=== PATIENT | male | born 1980 | race Caucasian/White ===

== ENCOUNTER 2018-09-21 13:45 | Inpatient (IN) | payer SELFPAY ==
--- NOTE | 2018-09-21 13:56 | Emergency Department Report ---
Blank Doc - Documentation Documentation: 38 y o male with hx of ETOH abuse presents with alcohol withdrawal/intox labs ordered MAin eval
--- NOTE | 2018-09-21 14:40 | Cat Scan Report ---
EXAM: CT HEAD/BRAIN WO CON HISTORY: Alcohol Intoxication TECHNIQUE: Spiral axial CT images are obtained through the brain without the administration of intra venous contrast. CT DOSE LENGTH PRODUCT: 805.4 mGycm COMPARISON: None available. FINDINGS: The centrum semiovale, basal ganglia, cerebellum, and brainstem are grossly unremarkable for a noncon trast CT scan. There is no acute intracranial hemorrhage, discernible acute infarction, mass lesion, midline shift, or hydrocephalus seen. No extra-axial mass or abnormal fluid collection is seen. The calvarium is intact. The partially imaged paranasal sinuses, middle ear cavities, and mastoid ai r cells are clear. IMPRESSION: 1. No intracranial hemorrhage, discernible acute infarction, mass lesions, midline shift, mass effe ct or hydrocephalus seen. 2. No gross acute intracranial abnormality seen. This document is electronically signed by Anai Stewart MD., September 21 2018 02:38:43 PM ET
[2018-09-21 14:44] LABS: Basophils % (Auto) 0.4 % (0.0-1.8); Eosinophils % (Auto) 0.1 % (0.0-4.3); Hematocrit 38.1 % (35.5-45.6); Hemoglobin 13.5 gm/dl (11.8-15.2); Lymphocytes % (Auto) 12.7 % (13.4-35.0); Mean Corpuscular HGB Conc 35 % (32-34); Mean Corpuscular Volume 93 fl (84-94); Monocytes # (Auto) 0.7 K/mm3 (0.0-0.8); Monocytes % (Auto) 8.6 % (0.0-7.3); Platelet Count 134 K/mm3 (140-440); Red Cell Distribution Width 14.1 % (13.2-15.2)
[2018-09-21] MEDS ORDERED: ATIVAN IV ONE (14:53)
[2018-09-21] MEDS ORDERED: VITAMIN B-1 100 MG, FOLVITE 1 MG, INFUVITE 10 ML in NACL 0.9% 1000 ML 1,000 ML IV ONE (14:53)
[2018-09-21 14:54] LABS: INR 1.08 (0.87-1.13)
[2018-09-21 14:55] LABS: Partial Thromboplastin Time 33.2 Sec. (24.2-36.6)
--- NOTE | 2018-09-21 15:00 | Emergency Department Report ---
ED Alcohol HPI - General Chief Complaint: Alcohol Stated Complaint: FEELS REALLY BAD Time Seen by Provider: 09/21/18 13:52 Source: patient Mode of arrival: Ambulatory Limitations: No Limitations - History of Present Illness Initial Comments: Patient is a 38 years old male with no significant past medical history except for chronic alcoholism. Patient presented to the ER stating that he is feeling bad. Patient is shaking with significant tremor. Patient also stated that he's been having some visual hallucination although patient does not have any history of psych problems before. Patient stated that he drink a 12 packs every day and he tried to quit yesterday. Patient is in obvious DT's. CIWIA protocol initiated. Patient received 2 mg of Ativan and started on banana bag. Patient was discharged from the hospital 2 weeks ago for the same presentation. MD Complaint: alcohol withdrawal -: days(s) (1) Chronic Alcohol Use: Yes Recent Trauma: No Treatments Prior to Arrival: none - Related Data Previous Rx's Medication Instructions Recorded Last Taken Type Folic Acid [Folvite] 1 mg PO QDAY #30 tablet 09/01/18 Unknown Rx Multivitamin Tab [Multiple Vitamin 1 each PO QDAY #30 tablet 09/01/18 Unknown Rx TAB (Theragran)] Thiamine [Vitamin B-1] 100 mg PO QDAY #30 tablet 09/01/18 Unknown Rx Allergies Allergy/AdvReac Type Severity Reaction Status Date / Time No Known Allergies Allergy Verified 08/30/18 14:51 ED Review of Systems ROS: Stated complaint: FEELS REALLY BAD Other details as noted in HPI Comment: All other systems reviewed and negative Constitutional: denies: chills, fever Respiratory: denies: cough, orthopnea, shortness of breath, SOB with exertion, SOB at rest, wheezing Cardiovascular: denies: chest pain, palpitations Gastrointestinal: denies: abdominal pain, nausea, vomiting, diarrhea, constipation, hematemesis, melena, hematochezia Genitourinary: denies: urgency, dysuria Neurological: headache. denies: weakness, numbness, paresthesias, confusion Psychiatric: anxiety, visual hallucinations. denies: depression, auditory hallucinations, homicidal thoughts, suicidal thoughts ED Past Medical Hx - Past Medical History Previous Medical History?: No Hx Congestive Heart Failure: No Hx Diabetes: No Hx Asthma: No Hx COPD: No Hx HIV: No - Surgical History Past Surgical History?: No - Social History Smoking Status: Current Every Day Smoker Substance Use Type: Alcohol - Medications Home Medications: Home Medications Medication Instructions Recorded Confirmed Last Taken Type Folic Acid [Folvite] 1 mg PO QDAY #30 tablet 09/01/18 Unknown Rx Multivitamin Tab [Multiple Vitamin 1 each PO QDAY #30 tablet 09/01/18 Unknown Rx TAB (Theragran)] Thiamine [Vitamin B-1] 100 mg PO QDAY #30 tablet 09/01/18 Unknown Rx ED Physical Exam - General Limitations: No Limitations General appearance: alert, anxious, other (obvious tremor) - Head Head exam: Present: atraumatic, normocephalic, normal inspection - Eye Eye exam: Present: normal appearance, PERRL - ENT ENT exam: Present: normal exam, normal orophraynx, mucous membranes moist - Respiratory Respiratory exam: Present: normal lung sounds bilaterally - Cardiovascular Cardiovascular Exam: Present: regular rate, normal rhythm, normal heart sounds - GI/Abdominal GI/Abdominal exam: Present: soft, normal bowel sounds. Absent: distended, tenderness, guarding, rebound, rigid, organomegaly, mass, bruit, pulsatile mass, hernia - Extremities Exam Extremities exam: Present: normal inspection, full ROM, normal capillary refill. Absent: pedal edema, calf tenderness - Back Exam Back exam: Present: normal inspection, full ROM. Absent: CVA tenderness (R), CVA tenderness (L), muscle spasm, paraspinal tenderness, vertebral tenderness - Neurological Exam Neurological exam: Present: alert, oriented X3, CN II-XII intact, normal gait, reflexes normal - Skin Skin exam: Present: warm, intact, normal color ED Course Vital Signs 09/21/18 09/21/18 09/21/18 13:54 14:09 15:07 Temperature 98.0 F 97.7 F Pulse Rate 83 79 Respiratory 18 22 20 Rate Blood Pressure 128/80 Blood Pressure 128/80 [Right] O2 Sat by Pulse 98 97 Oximetry ED Medical Decision Making - Lab Data Result diagrams: 09/21/18 13:58 09/21/18 13:58 - Medical Decision Making Patient is a 38 years old male with no significant past medical history except for chronic alcoholism. Patient presented to the ER stating that he is feeling bad. Patient is shaking with significant tremor. Patient also stated that he's been having some visual hallucination although patient does not have any history of psych problems before. Patient stated that he drink a 12 packs every day and he tried to quit yesterday. Patient is in obvious DT's. CIWIA protocol initiated. Patient received 2 mg of Ativan and started on banana bag. Patient CIWIA score is 14. I discussed the patient is Dr. Singh, he agreed to admit the patient to medical service. Critical Care Time: Yes Critical care time in (mins) excluding proc time.: 30 Critical care attestation.: If time is entered above; I have spent that time in minutes in the direct care of this critically ill patient, excluding procedure time. ED Disposition Clinical Impression: Delirium tremens, Alcohol withdrawal Disposition: 09 OP ADMIT IP TO THIS HOSP Is pt being admited?: No Condition: Stable Instructions: Acute Delirium (ED), Alcohol Withdrawal (ED)
[2018-09-21] MEDS ORDERED: NACL 0.9% 1000 ML 1,000 ML ONE (15:05)
[2018-09-21 15:11] LABS: Alanine Aminotransferase 60 units/L (7-56); Albumin 4.5 g/dL (3.9-5); BUN/Creatinine Ratio 8; Blood Urea Nitrogen 5 mg/dL (9-20); Calcium 9.5 mg/dL (8.4-10.2); Hemolysis Index 4
[2018-09-21] MEDS ORDERED: NACL 0.9% 1000 ML 1,000 ML IV ONE (15:12)
[2018-09-21] MEDS ORDERED: IBUPROFEN PO PRN (17:04)
[2018-09-21] MEDS ORDERED: SODIUM CHLORIDE FLUSH SYRINGE 10 ML IV PRN ×3 (17:04→19:04)
[2018-09-21] MEDS ORDERED: ZOFRAN IV PRN ×3 (17:04→19:04)
[2018-09-21] MEDS ORDERED: MORPHINE IV PRN (17:04)
[2018-09-21] MEDS ORDERED: TYLENOL PO PRN ×2 (17:04→17:39)
--- NOTE | 2018-09-21 18:11 | History and Physical Report ---
History of Present Illness Date of examination: 09/21/18 Date of admission: 09/21/2018 Chief complaint: Complains of weakness and tremors for 1 day History of present illness: 38-year-old male with history of alcoholism comes in for feeling weak, generalized malaise and tremors. Patient presented to the registration window visibly tremulous and having trouble writing. Patient is diaphoretic and complains of nausea and a headache. Patient tried to quit drinking since yesterday and became tremulous. Patient is also having hallucinations. No suicidal or homicidal ideas. No fever or chills. Patient drinks about 12 pack beer every day. No chest pain or shortness of breath. Patient is confused and also short of breath. Patient was recently admitted and discharged Last discharge summary on 09/01/2018 Hospital course: 38 YO Male with Nicotine Dependence, ETOH dependence presents to ED for evaluation. Pt is confused, tremulous and unable to provide detailed history. Pt history taken from family members who are at bedside during exam and interview. As per family, the patient consumes approximately 1-2 6 packs of beer daily with the last drink as of yesterday although family reports close to 30 drinks daily. Pt transported to [facility] via private vehicle. Pt seen and evaluated in ED and found to have ETOH Withdrawl complicated by Delirium Tremens. Pt admitted to medical floor and initiated on CIWA protocol. No prior admission for review. No medication listed for reconciliation at time of admission. Pt is confused but has a positive gag reflex and is able to protect his airway. He is unable to afford etoh on the day of presentation. patient was treated with CIWA protocol and mental status improved. counselling 15mins provided on need to quit tobacco and etoh, pt verbalized understanding. Potassium was supplemented, last ativan given was around 6:30pm yesterday. 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 Past Medical History Alcoholism Surgical History Past Surgical History?: No Social History Smoking Status: Current Every Day Smoker Substance Use Type: Alcohol on regular basis--patient not able to quantify Family history Htn Medications Home Medications: Home Medications Medication Instructions Recorded Confirmed Last Taken Type Folic Acid [Folvite] 1 mg PO QDAY #30 tablet 09/01/18 Unknown Rx Multivitamin Tab [Multiple Vitamin 1 each PO QDAY #30 tablet 09/01/18 Unknown Rx TAB (Theragran)] Thiamine [Vitamin B-1] 100 mg PO QDAY #30 tablet 09/01/18 Unknown Rx Review of systems ROS: Stated complaint: FEELS REALLY BAD Other details as noted in HPI Comment: All other systems reviewed and negative Constitutional: denies: chills, fever Respiratory: denies: cough, orthopnea, shortness of breath, SOB with exertion, SOB at rest, wheezing Cardiovascular: denies: chest pain, palpitations Gastrointestinal: denies: abdominal pain, nausea, vomiting, diarrhea, constipation, hematemesis, melena, hematochezia Genitourinary: denies: urgency, dysuria Neurological: headache. denies: weakness, numbness, paresthesias, confusion Psychiatric: anxiety, visual hallucinations. denies: depression, auditory hallucinations, homicidal thoughts, suicidal thoughts Review of systems otherwise negative Medications and Allergies Allergies Allergy/AdvReac Type Severity Reaction Status Date / Time No Known Allergies Allergy Verified 08/30/18 14:51 Home Medications Medication Instructions Recorded Confirmed Last Taken Type Folic Acid [Folvite] 1 mg PO QDAY #30 tablet 09/01/18 Unknown Rx Multivitamin Tab [Multiple Vitamin 1 each PO QDAY #30 tablet 09/01/18 Unknown Rx TAB (Theragran)] Thiamine [Vitamin B-1] 100 mg PO QDAY #30 tablet 09/01/18 Unknown Rx Active Meds: Active Medications Acetaminophen (Tylenol) 650 mg PO Q4H PRN PRN Reason: Pain MILD(1-3)/Fever >100.5/SHERMAN Acetaminophen (Tylenol) 650 mg PO Q4H PRN PRN Reason: Pain MILD(1-3)/Fever >100.5/SHERMAN Folic Acid (Folvite) 1 mg PO QDAY [facility] Thiamine HCl 100 mg/ Folic Acid 1 mg/ Multivitamins/Minerals 10 ml/ Sodium Chloride 1,011.2 mls @ 250 mls/hr IV ONCE ONE Stop: 09/21/18 18:55 Last Admin: 09/21/18 15:30 Dose: 250 mls/hr Documented by: Dextrose/Sodium Chloride (D5ns) 1,000 mls @ 100 mls/hr IV DIRECT [facility] Ibuprofen (Ibuprofen) 600 mg PO Q6H PRN PRN Reason: Pain, Mild (1-3) Morphine Sulfate (Morphine) 2 mg IV Q4H PRN PRN Reason: Pain, Moderate (4-6) Multivitamins (Theragran Tab) 1 each PO QDAY [facility] Ondansetron HCl (Zofran) 4 mg IV Q8H PRN PRN Reason: Nausea And Vomiting Ondansetron HCl (Zofran) 4 mg IV Q8H PRN PRN Reason: Nausea And Vomiting Sodium Chloride (Sodium Chloride Flush Syringe 10 Ml) 10 ml IV BID [facility] Sodium Chloride (Sodium Chloride Flush Syringe 10 Ml) 10 ml IV PRN PRN PRN Reason: LINE FLUSH Sodium Chloride (Sodium Chloride Flush Syringe 10 Ml) 10 ml IV BID [facility] Sodium Chloride (Sodium Chloride Flush Syringe 10 Ml) 10 ml IV PRN PRN PRN Reason: LINE FLUSH Thiamine HCl (Vitamin B-1) 100 mg PO QDAY [facility] Exam - Constitutional Vitals: Temp Pulse Resp BP Pulse Ox 97.7 F 63 13 128/76 100 09/21/18 14:09 09/21/18 17:00 09/21/18 17:00 09/21/18 17:00 09/21/18 17:00 General appearance: Present: mild distress, well-nourished - EENT Eyes: Present: PERRL ENT: hearing intact, clear oral mucosa - Neck Neck: Present: supple, normal ROM - Respiratory Respiratory effort: normal Respiratory: bilateral: CTA - Cardiovascular Heart rate: 78 Rhythm: regular Heart Sounds: Present: S1 & S2. Absent: rub, click - Extremities Extremities: pulses symmetrical, No edema Peripheral Pulses: within normal limits - Abdominal General gastrointestinal: Present: soft, non-tender, non-distended, normal bowel sounds Male genitourinary: Present: normal - Integumentary Integumentary: Present: clear, warm, dry - Musculoskeletal Musculoskeletal: gait normal, strength equal bilaterally - Psychiatric Psychiatric: appropriate mood/affect, intact judgment & insight - Neurologic Neurologic: CNII-XII intact, moves all extremities Results - Labs CBC & Chem 7: 09/21/18 13:58 09/21/18 13:58 Labs: Laboratory Last Values WBC 7.8 K/mm3 (4.5-11.0) 09/21/18 13:58 RBC 4.10 M/mm3 (3.65-5.03) 09/21/18 13:58 Hgb 13.5 gm/dl (11.8-15.2) 09/21/18 13:58 Hct 38.1 % (35.5-45.6) 09/21/18 13:58 MCV 93 fl (84-94) 09/21/18 13:58 MCH 33 pg (28-32) H 09/21/18 13:58 MCHC 35 % (32-34) H 09/21/18 13:58 RDW 14.1 % (13.2-15.2) 09/21/18 13:58 Plt Count 134 K/mm3 (140-440) L 09/21/18 13:58 Lymph % (Auto) 12.7 % (13.4-35.0) L 09/21/18 13:58 [place] % (Auto) 8.6 % (0.0-7.3) H 09/21/18 13:58 Eos % (Auto) 0.1 % (0.0-4.3) 09/21/18 13:58 Baso % (Auto) 0.4 % (0.0-1.8) 09/21/18 13:58 Lymph # 1.0 K/mm3 (1.2-5.4) L 09/21/18 13:58 [place] # 0.7 K/mm3 (0.0-0.8) 09/21/18 13:58 Eos # 0.0 K/mm3 (0.0-0.4) 09/21/18 13:58 Baso # 0.0 K/mm3 (0.0-0.1) 09/21/18 13:58 Seg Neutrophils % 78.2 % (40.0-70.0) H 09/21/18 13:58 Seg Neutrophils # 6.1 K/mm3 (1.8-7.7) 09/21/18 13:58 PT 14.7 Sec. (12.2-14.9) 09/21/18 13:58 INR 1.08 (0.87-1.13) 09/21/18 13:58 APTT 33.2 Sec. (24.2-36.6) 09/21/18 13:58 Sodium 135 mmol/L (137-145) L 09/21/18 13:58 Potassium 4.1 mmol/L (3.6-5.0) 09/21/18 13:58 Chloride 95.1 mmol/L (98-107) L 09/21/18 13:58 Carbon Dioxide 22 mmol/L (22-30) 09/21/18 13:58 22 mmol/L 09/21/18 13:58 BUN 5 mg/dL (9-20) L 09/21/18 13:58 0.6 mg/dL (0.8-1.5) L 09/21/18 13:58 Estimated GFR > 60 ml/min 09/21/18 13:58 8 % 09/21/18 13:58 Glucose 100 mg/dL (75-100) 09/21/18 13:58 Calcium 9.5 mg/dL (8.4-10.2) 09/21/18 13:58 Magnesium 1.80 mg/dL (1.7-2.3) 09/21/18 15:16 1.50 mg/dL (0.1-1.2) H 09/21/18 13:58 AST 86 units/L (5-40) H 09/21/18 13:58 ALT 60 units/L (7-56) H 09/21/18 13:58 197 units/L (35-129) H 09/21/18 13:58 9.5 g/dL (6.3-8.2) H 09/21/18 13:58 4.5 g/dL (3.9-5) 09/21/18 13:58 0.9 % 09/21/18 13:58 37 units/L (13-60) 09/21/18 13:58 Plasma/Serum Alcohol < 0.01 % (0-0.07) 09/21/18 13:58 Assessment and Plan Advance Directives: Yes (full code) VTE prophylaxis?: Chemical Plan of care discussed with patient/family: Yes - Patient Problems (1) Delirium tremens Current Visit: Yes Status: Acute Plan to address problem: Patient initiated on IV fluids and CIWA protocol (2) Alcohol withdrawal Current Visit: Yes Status: Acute Qualifiers: Complication of substance-induced condition: with delirium Qualified Code(s): F10.231 - Alcohol dependence with withdrawal delirium Plan to address problem: CIWA protocol initiated Patient counseled This is the second admission in the last 2 months (3) Nicotine dependence Current Visit: No Status: Chronic Qualifiers: Nicotine product type: cigarettes Substance use status: in withdrawal Qualified Code(s): F17.213 - Nicotine dependence, cigarettes, with withdrawal Plan to address problem: NicoDerm patch initiated. Patient counseled about stopping smoking (4) Transaminitis Current Visit: Yes Status: Acute Plan to address problem: Secondary to alcohol AST and ALT trending down 95-86 AST 67-60 ALT 208-197 ALK Phos (5) DVT prophylaxis Current Visit: No Status: Acute Plan to address problem: Lovenox 40 mg subcutaneous daily and GI prophylaxis
[2018-09-21] MEDS: VITAMIN B-1 PO SCH (21:32)
[2018-09-21] MEDS: FOLVITE PO SCH (21:32)
[2018-09-21] MEDS: THERAGRAN Tab PO SCH (21:32)
[2018-09-21] MEDS: PEPCID IV SCH (21:33)
[2018-09-21] MEDS: LOVENOX SUB-Q SCH (21:34)
[2018-09-21] MEDS: SODIUM CHLORIDE FLUSH SYRINGE 10 ML IV SCH ×2 (21:34→21:43)
[2018-09-21] MEDS ORDERED: SODIUM CHLORIDE FLUSH SYRINGE 10 ML IV SCH (22:00)
[2018-09-21] MEDS ORDERED: ATIVAN IV PRN (22:52)
[2018-09-21] MEDS: TYLENOL PO PRN (22:59)
[2018-09-22] MEDS: ATIVAN IV PRN ×3 (03:43→22:46)
[2018-09-22 04:02] LABS: Bilirubin,Urine NEG (Negative); Blood,Urine NEG (Negative); Protein,Urine <15 mg/dL mg/dL (Negative); WBC,Urine < 1.0 /HPF (0.0-6.0)
[2018-09-22 04:08] LABS: Color,Urine Dark Yellow (Yellow)
[2018-09-22 04:11] LABS: Amphetamine Screen,Urine PRESUMPTIVE NEGATIVE; Benzodiazepines Screen,Urine PRESUMPTIVE NEGATIVE; Cannabinoid Screen,Urine PRESUMPTIVE NEGATIVE; Cocaine Screen,Urine PRESUMPTIVE NEGATIVE; Methadone Screen,Urine PRESUMPTIVE NEGATIVE; Opiate Screen,Urine PRESUMPTIVE NEGATIVE
[2018-09-22 06:44] LABS: Basophils % (Auto) 0.5 % (0.0-1.8); Eosinophils # (Auto) 0.1 K/mm3 (0.0-0.4); Eosinophils % (Auto) 1.1 % (0.0-4.3); Hematocrit 36.3 % (35.5-45.6); Hemoglobin 12.7 gm/dl (11.8-15.2); Lymphocytes % (Auto) 31.7 % (13.4-35.0); Mean Corpuscular HGB Conc 35 % (32-34); Mean Corpuscular Volume 94 fl (84-94); Monocytes # (Auto) 0.8 K/mm3 (0.0-0.8); Monocytes % (Auto) 12.8 % (0.0-7.3); Red Blood Count 3.85 M/mm3 (3.65-5.03); Red Cell Distribution Width 14.1 % (13.2-15.2)
[2018-09-22 06:49] LABS: Platelet Count 111 K/mm3 (140-440)
[2018-09-22] MEDS: D5NS 1,000 ML IV SCH ×2 (06:49→21:56)
[2018-09-22 07:53] LABS: Alanine Aminotransferase 49 units/L (7-56); Albumin 3.9 g/dL (3.9-5); BUN/Creatinine Ratio 16; Blood Urea Nitrogen 8 mg/dL (9-20); Calcium 9.2 mg/dL (8.4-10.2); Hemolysis Index 12
[2018-09-22] MEDS: SODIUM CHLORIDE FLUSH SYRINGE 10 ML IV SCH ×4 (09:23→22:12)
[2018-09-22] MEDS: PEPCID IV SCH ×2 (09:23→21:52)
[2018-09-22] MEDS: FOLVITE PO SCH (09:24)
[2018-09-22] MEDS: VITAMIN B-1 PO SCH (09:24)
[2018-09-22] MEDS: THERAGRAN Tab PO SCH (09:24)
--- NOTE | 2018-09-22 13:25 | Progress Note ---
Assessment and Plan Assessment and plan: Alcohol withdrawal syndrome Cont [facility] protocol Ativan prn as per [facility] Transaminitis likely due to alcohol Monitor LFT Nicotine use Full code status Hopefully dc home in few days History Interval history: Generalized weakness Tremors improving Hospitalist Physical - Physical exam Narrative exam: Gen: Not in acute distress, lying in bed, HEENT: Normocephalic, atraumatic Neck: supple, no JVD Heart: S1 and S2 reg, no murmurs, rubs or gallop Lungs: Clear, no crackles, no wheeze Abd: soft, non tender, non distended, normal BS Ext: No edema, no clubbing, no cyanosis, Neuro: Awake,alert, oriented x 3, moves all ext, tremors both hands Psych:Normal mood - Constitutional Vitals: Temp Pulse Resp BP Pulse Ox 98.2 F 55 L 20 132/78 99 09/22/18 05:45 09/22/18 05:45 09/22/18 05:45 09/22/18 05:45 09/22/18 07:27 Results - Labs CBC & Chem 7: 09/22/18 06:06 09/22/18 06:06 Labs: Laboratory Last Values WBC 6.3 K/mm3 (4.5-11.0) 09/22/18 06:06 RBC 3.85 M/mm3 (3.65-5.03) 09/22/18 06:06 Hgb 12.7 gm/dl (11.8-15.2) 09/22/18 06:06 Hct 36.3 % (35.5-45.6) 09/22/18 06:06 MCV 94 fl (84-94) 09/22/18 06:06 MCH 33 pg (28-32) H 09/22/18 06:06 MCHC 35 % (32-34) H 09/22/18 06:06 RDW 14.1 % (13.2-15.2) 09/22/18 06:06 Plt Count 111 K/mm3 (140-440) L 09/22/18 06:06 Lymph % (Auto) 31.7 % (13.4-35.0) 09/22/18 06:06 [place] % (Auto) 12.8 % (0.0-7.3) H 09/22/18 06:06 Eos % (Auto) 1.1 % (0.0-4.3) 09/22/18 06:06 Baso % (Auto) 0.5 % (0.0-1.8) 09/22/18 06:06 Lymph # 2.0 K/mm3 (1.2-5.4) 09/22/18 06:06 [place] # 0.8 K/mm3 (0.0-0.8) 09/22/18 06:06 Eos # 0.1 K/mm3 (0.0-0.4) 09/22/18 06:06 Baso # 0.0 K/mm3 (0.0-0.1) 09/22/18 06:06 Seg Neutrophils % 53.9 % (40.0-70.0) 09/22/18 06:06 Seg Neutrophils # 3.4 K/mm3 (1.8-7.7) 09/22/18 06:06 PT 14.7 Sec. (12.2-14.9) 09/21/18 13:58 INR 1.08 (0.87-1.13) 09/21/18 13:58 APTT 33.2 Sec. (24.2-36.6) 09/21/18 13:58 Sodium 138 mmol/L (137-145) 09/22/18 06:06 Potassium 3.8 mmol/L (3.6-5.0) 09/22/18 06:06 Chloride 99.1 mmol/L (98-107) 09/22/18 06:06 Carbon Dioxide 26 mmol/L (22-30) 09/22/18 06:06 17 mmol/L 09/22/18 06:06 BUN 8 mg/dL (9-20) L 09/22/18 06:06 0.5 mg/dL (0.8-1.5) L 09/22/18 06:06 Estimated GFR > 60 ml/min 09/22/18 06:06 16 % 09/22/18 06:06 Glucose 83 mg/dL (75-100) 09/22/18 06:06 4.9 % (4-6) 09/21/18 13:58 Calcium 9.2 mg/dL (8.4-10.2) 09/22/18 06:06 Magnesium 1.80 mg/dL (1.7-2.3) 09/21/18 15:16 2.20 mg/dL (0.1-1.2) H 09/22/18 06:06 AST 60 units/L (5-40) H 09/22/18 06:06 ALT 49 units/L (7-56) 09/22/18 06:06 169 units/L (35-129) H 09/22/18 06:06 8.2 g/dL (6.3-8.2) 09/22/18 06:06 3.9 g/dL (3.9-5) 09/22/18 06:06 0.9 % 09/22/18 06:06 37 units/L (13-60) 09/21/18 13:58 Dark yellow (Yellow) 09/22/18 03:40 Clear (Clear) 09/22/18 03:40 7.0 (5.0-7.0) 09/22/18 03:40 Ur Specific [place] 1.012 (1.003-1.030) 09/22/18 03:40 <15 mg/dl mg/dL (Negative) 09/22/18 03:40 Neg mg/dL (Negative) 09/22/18 03:40 Neg mg/dL (Negative) 09/22/18 03:40 Neg (Negative) 09/22/18 03:40 Neg (Negative) 09/22/18 03:40 Neg (Negative) 09/22/18 03:40 4.0 mg/dL (<2.0) 09/22/18 03:40 Ur Leukocyte Esterase Neg (Negative) 09/22/18 03:40 < 1.0 /HPF (0.0-6.0) 09/22/18 03:40 1.0 /HPF (0.0-6.0) 09/22/18 03:40 Presumptive negative 09/22/18 03:40 Presumptive negative 09/22/18 03:40 Ur Barbiturates Screen Presumptive negative 09/22/18 03:40 Ur Phencyclidine Scrn Presumptive negative 09/22/18 03:40 Ur Amphetamines Screen Presumptive negative 09/22/18 03:40 U Benzodiazepines Scrn Presumptive negative 09/22/18 03:40 Presumptive negative 09/22/18 03:40 U Marijuana (THC) Screen Presumptive negative 09/22/18 03:40 Disclamer 09/22/18 03:40 Plasma/Serum Alcohol < 0.01 % (0-0.07) 09/21/18 13:58 Active Medications - Current Medications Current Medications: Generic Name Dose Route Start Last Admin Trade Name Freq PRN Reason Stop Dose Admin Acetaminophen 650 mg 09/21/18 19:04 09/21/18 22:59 Tylenol PO 650 mg Q4H PRN Administration Pain MILD(1-3)/Fever >100.5/SHERMAN Enoxaparin Sodium 40 mg 09/21/18 22:00 09/21/18 21:34 Lovenox SUB-Q 40 mg QDAY@2200 GRACE Administration Famotidine 20 mg 09/21/18 22:00 09/22/18 09:23 Pepcid IV 20 mg BID GRACE Administration Folic Acid 1 mg 09/21/18 18:00 09/22/18 09:24 Folvite PO 1 mg QDAY GRACE Administration Dextrose/Sodium Chloride 1,000 mls @ 100 mls/hr 09/21/18 18:00 09/22/18 06:49 D5ns IV 100 mls/hr DIRECT GRACE Administration Ibuprofen 600 mg 09/21/18 17:04 Ibuprofen PO Q6H PRN Pain, Mild (1-3) Lorazepam 2 mg 09/21/18 22:52 09/22/18 09:23 Ativan IV 2 mg Q1H PRN Administration CIWA-Ar 8-15 Lorazepam 4 mg 09/21/18 22:52 Ativan IV Q1H PRN CIWA-Ar 16-25 Morphine Sulfate 2 mg 09/21/18 17:04 09/22/18 03:42 Morphine IV 2 mg Q4H PRN Administration Pain, Moderate (4-6) Multivitamins 1 each 09/21/18 18:00 09/22/18 09:24 Theragran Tab PO 1 each QDAY GRACE Administration Ondansetron HCl 4 mg 09/21/18 19:04 Zofran IV Q8H PRN Nausea And Vomiting Sodium Chloride 10 ml 09/21/18 22:00 09/22/18 09:23 Sodium Chloride Flush Syringe 10 Ml IV 10 ml BID GRACE Administration Sodium Chloride 10 ml 09/21/18 17:04 Sodium Chloride Flush Syringe 10 Ml IV PRN PRN LINE FLUSH Sodium Chloride 10 ml 09/21/18 22:00 09/22/18 09:24 Sodium Chloride Flush Syringe 10 Ml IV 10 ml BID GRACE Administration Sodium Chloride 10 ml 09/21/18 19:04 Sodium Chloride Flush Syringe 10 Ml IV PRN PRN LINE FLUSH Thiamine HCl 100 mg 09/21/18 18:00 09/22/18 09:24 Vitamin B-1 PO 100 mg QDAY GRACE Administration
[2018-09-22] MEDS: LOVENOX SUB-Q SCH (21:51)
[2018-09-22] MEDS: TYLENOL PO PRN (22:46)
[2018-09-23 05:27] LABS: Alanine Aminotransferase 49 units/L (7-56); Albumin 3.6 g/dL (3.9-5); BUN/Creatinine Ratio 14; Blood Urea Nitrogen 7 mg/dL (9-20); Calcium 8.9 mg/dL (8.4-10.2); Hemolysis Index 3
[2018-09-23] MEDS: D5NS 1,000 ML IV SCH (07:38)
[2018-09-23] MEDS: THERAGRAN Tab PO SCH (10:22)
[2018-09-23] MEDS: K-DUR PO SCH ×2 (10:22→16:54)
[2018-09-23] MEDS: PEPCID IV SCH (10:22)
[2018-09-23] MEDS: FOLVITE PO SCH (10:23)
[2018-09-23] MEDS: VITAMIN B-1 PO SCH (10:23)
[2018-09-23] MEDS: SODIUM CHLORIDE FLUSH SYRINGE 10 ML IV SCH ×2 (10:24)
[2018-09-23 12:32] VITALS: BP 132/74
--- NOTE | 2018-09-23 13:14 | Discharge Summary ---
Providers - Providers Date of Admission: 09/21/18 16:01 Date of discharge: 09/23/18 Attending physician: ALIX ALTAMIRANO Primary care physician: [facility] MD TEMI Hospitalization Condition: Fair Hospital course: Patient is 38-year-old male with history of alcoholism presented with generalized malaise, weakness and tremors. Patient presented to the [facility] window visibly tremulous and having trouble writing. Patient was diaphoretic and complained of nausea, headache, hallucinations. Patient tried to quit drinking day before admission and became tremulous. Patient drinks about 12 pack beer every day. He was diagnosed with acute alcohol withdrawal syndrome, started on iv fluids, CIWA protocol and admitted. he improved in few days, tremors subsided and was discharged home on 09/23/18. Total time spent on discharge, 32 mins Disposition: DC- TO HOME OR SELFCARE - Discharge Diagnoses (1) Acute metabolic encephalopathy Status: Acute (2) Alcohol withdrawal Status: Acute Qualifiers: Complication of substance-induced condition: with delirium Qualified Code(s): F10.231 - Alcohol dependence with withdrawal delirium (3) Delirium tremens Status: Acute (4) Transaminitis Status: Acute Core Measure Documentation - Palliative Care Palliative Care/ Comfort Measures: Not Applicable - Core Measures Any of the following diagnoses?: none Exam - Constitutional Vitals: Temp Pulse Resp BP Pulse Ox 98.5 F 51 L 20 132/74 98 09/23/18 11:56 09/23/18 11:56 09/23/18 11:56 09/23/18 11:56 09/23/18 11:56 Plan Activity: no restrictions Diet: regular Additional Instructions: 1.Follow up with PCP or [facility] in 1 week Follow up with: GINA LAO MD [Primary Care Provider] - 3-5 Days Prescriptions: Folic Acid [Folvite] 1 mg PO QDAY #30 tablet Multivitamin Tab [Multiple Vitamin TAB (Theragran)] 1 each PO QDAY #30 tablet Famotidine [Pepcid] 20 mg PO BID #30 tablet Thiamine [Vitamin B-1] 100 mg PO QDAY #30 tablet
[2018-09-23] MEDS ORDERED: PEPCID PO SCH (22:00)
== END 2018-09-23 17:30 | disposition home or self-care (01) | DRG 897 ==
LOC: ED 13:45 → 3A 16:01
PROVIDERS: ADMIT Internal Medicine; ATTEND Internal Medicine
DX: F10.231 Alcohol dependence with withdrawal delirium (principal); R74.0 Nonspecific elevation of levels of transaminase and lactic acid dehydrogenase [LDH]; F17.200 Nicotine dependence, unspecified, uncomplicated; Z82.49 Family history of ischemic heart disease and other diseases of the circulatory system; Z79.899 Other long term (current) drug therapy
CPT/HCPCS: 36415; 70450; 80053; 80307; 80320; 81001; 83036; 83690; 83735; 84100; 84484; 85025; 85610; 85730; 93005; 93010; 99406; G0378; G0480; J1650; J2060; J2270; J3411; J7030; J7042